=== PATIENT | male | born 1960 | race Caucasian/White ===

== ENCOUNTER 2024-01-15 10:06 | Outpatient (CLI) | payer MEDICARE, SELFPAY | END 2024-01-15 10:07 | disposition home or self-care (01) | PROVIDERS: PCP Family Medicine; Visit Provider Family Medicine | DX: Z00.00 Encounter for general adult medical examination without abnormal findings (principal); E78.2 Mixed hyperlipidemia; R07.9 Chest pain, unspecified; Z12.5 Encounter for screening for malignant neoplasm of prostate; Z87.898 Personal history of other specified conditions | CPT/HCPCS: 80048; 80061; 80076; 85027; G0103 ==

== ENCOUNTER 2024-01-17 12:37 | Outpatient (CLI) | payer OTHER, SELFPAY ==
[2024-01-17] MEDS: PERFLUTREN LIPID MICROSPHERES 2 ML VIAL IV (13:09)
[2024-01-17 13:52] VITALS: BP 150/88; PULSE 91
--- NOTE | 2024-01-17 14:10 | W.PM.STED ---
Stress Test Note Date Date Seen: 01/17/24 Date of test: 01/17/24 Providers Referring provider: Med Orr Primary care provider: Carlos Hidalgo Stress test physician: Denise Willis Stress Test Note Stress test ordered: Stress Echo Indication for test: Chest pain Stress test medicine: Definity Results discussion: Resting EKG: Sinus rhythm, 78 beats per minute. Resting blood pressure: 132/85 Stress test: Patient was consented on stress test ordered. Patient was exercised on the treadmill following a standard [facility] protocol and had echo accompanying this stress test. Definity was required for visualization. Patient was only able to exercise 5 minutes 2 seconds, requesting to stop due to shortness of breath in reaching exercise capacity. He did feel some chest tightness with this but states he always feels like this with exercise. He was just reaching his target heart rate when we terminated the test. He had an exercise equivalent of 7 Mets. He reached a maximum heart rate of 134 beats per minute which was 100% of a calculated target heart rate of 133. He had a maximal blood pressure during exercise of 172/90[place] [id number]. There was no arrhythmia, no identification of any ischemia on the EKG portion of this test. Patient's symptoms resolved with termination of the test and brief rest period. Patient is aware that we need to await cardiology reading of the echo images for a full diagnostic test. He was discharged from here in stable condition. Impression: Subjective complaints of shortness of breath and chest tightness, objectively negative stress test for ischemia but poor exercise tolerance. Follow up suggested: Await echo images to couple this report for a full formal diagnostic, patient can expect to hear from ordering physician regarding results.
== END 2024-01-17 12:38 | disposition home or self-care (01) ==
LOC: STRESS 12:38
PROVIDERS: PCP Family Medicine; Visit Provider Family Medicine
DX: R07.9 Chest pain, unspecified (principal)
CPT/HCPCS: 93016; 93325; 93351; Q9957

== ENCOUNTER 2024-02-05 09:32 | Outpatient (CLI) | payer MEDICARE, BC, SELFPAY ==
--- NOTE | 2024-02-05 12:15 | W.ANESCHARGE ---
Anesthesia Charges Start Date/Time Anesthesia Start Date: 02/05/24 Anesthesia Start Time: 11:16 Stop Date/Time Anesthesia Stop Date: 02/05/24 Anesthesia Stop Time: 12:14
--- NOTE | 2024-02-05 13:24 | W.ANESCHARGE ---
Anesthesia Charges Start Date/Time Anesthesia Start Date: 02/05/24 Anesthesia Start Time: 11:16 Stop Date/Time Anesthesia Stop Date: 02/05/24 Anesthesia Stop Time: 12:14
== END 2024-02-05 09:33 | disposition home or self-care (01) ==
LOC: OP CLINIC 09:34
PROVIDERS: PCP Family Medicine; Visit Provider Surgery
DX: Z12.11 Encounter for screening for malignant neoplasm of colon (principal); D12.3 Benign neoplasm of transverse colon; D12.4 Benign neoplasm of descending colon; D12.5 Benign neoplasm of sigmoid colon; D12.8 Benign neoplasm of rectum; Z86.0100 Personal history of colon polyps, unspecified
CPT/HCPCS: 00811; 45385; 88305; J2704